=== PATIENT | female | born 1960 | race Hispanic/Latino ===

== ENCOUNTER 2017-11-07 18:00 | Emergency (ER) | payer OTHER ==
[~2017-11-07] VITALS: Ht 160 cm; Wt 74.1 kg
[2017-11-07] MEDS ORDERED: SODIUM CHLORIDE 0.9% 1000ML 1,000 ML IV ONE (18:30)
[2017-11-07] MEDS ORDERED: HYDRALAZINE HCL 20 MG/ML VIAL IV STA (20:01)
[2017-11-07] MEDS ORDERED: LABETALOL HCL 5 MG/ML 20ML VIAL IV STA (20:12)
[2017-11-07 20:38] VITALS: BP 158/96
== END 2017-11-07 21:36 | disposition home or self-care (01) ==
LOC: FSED 18:00
DX: R10.9 Unspecified abdominal pain (principal); N30.90 Cystitis, unspecified without hematuria; K59.00 Constipation, unspecified; I10 Essential (primary) hypertension; E11.9 Type 2 diabetes mellitus without complications
CPT/HCPCS: 74177; 80048; 81003; 85025; 99284; J0360; J7030